=== PATIENT | male | born 1955 | race Caucasian/White ===

== ENCOUNTER 2019-06-24 06:43 | Day surgery (SDC) | payer BC ==
[2019-06-24] MEDS ORDERED: Midazolam 1 MG/ML 2 ML SDV IV ONE (06:44)
[2019-06-24] MEDS ORDERED: Propofol 200 MG/20 ML SDV IV ONE (06:44)
[2019-06-24] MEDS ORDERED: Sodium Chloride 0.9% 10 ML Syringe FLUSH PRN (06:45)
[2019-06-24] MEDS ORDERED: Lactated Ringers 1,000 ML IV SCH (06:45)
--- NOTE | 2019-06-24 08:17 | PCM.OPNOTE ---
- General Post-Op/Procedure Note Date of Surgery/Procedure: 06/24/19 Operative Procedure(s): c scope with bx cold loop and cold forceps Findings: transverse, sigmoid, rectal x2 polyps Pre Op Diagnosis: personal hx of colon polyps Post-Op Diagnosis: stalin Anesthesia Technique: MAC Primary Surgeon: Jose Mabry Anesthesia Provider: Geovanna Vigil Pathology: colon polyps Complications: None Condition: Good Free Text/Narrative:: see dictation
--- NOTE | 2019-06-29 15:15 | OR ---
DATE OF OPERATION: 06/24/2019 SURGEON: Jose Mabry MD PROCEDURE PERFORMED: Colonoscopy with cold loop and cold forceps biopsy. PREOPERATIVE DIAGNOSIS: Personal history of colon polyps. POSTOPERATIVE DIAGNOSIS: Personal history of colon polyps. DESCRIPTION OF OPERATION: After an excellent IV sedation was administered, digital rectal exam was performed. No marked abnormality was noted. The flexible colonoscope was inserted and advanced to the cecum. Prep was excellent. The following findings were noted. Ascending colon was unremarkable. Transverse colon, small polyp encountered, biopsied with cold loop snare and submitted for permanent. Descending colon, unremarkable. Sigmoid, small polyp, biopsied with cold biopsy forceps. Rectum, 2 polyps, biopsied with combination of cold forceps and cold loop. The patient tolerated the procedure well and was taken to recovery room in good condition. /[id number] /MODL
== END 2019-06-24 09:25 | disposition home or self-care (01) ==
LOC: FB.SDS 06:43
PROVIDERS: ATTEND Surgery
DX: Z12.11 Encounter for screening for malignant neoplasm of colon (principal); D12.3 Benign neoplasm of transverse colon; K63.5 Polyp of colon; K62.1 Rectal polyp; I10 Essential (primary) hypertension; E78.2 Mixed hyperlipidemia; Z86.010 Personal history of colon polyps; Z79.899 Other long term (current) drug therapy
CPT/HCPCS: 45380; 45385; 88305; J2250; J2704; J7120

== ENCOUNTER 2024-09-03 07:42 | Day surgery (SDC) | payer MEDICARE, OTHER ==
[2024-09-03] MEDS ORDERED: Lidocaine 1% PF 2 ML SDV IV ONE (07:43)
[2024-09-03] MEDS ORDERED: Propofol 200 MG/20 ML SDV IV ONE (07:43)
[2024-09-03] MEDS ORDERED: Sodium Chloride 0.9% 10 ML Syringe FLUSH PRN (07:45)
[2024-09-03] MEDS: Lactated Ringers 1,000 ML IV SCH (08:16)
[2024-09-03] MEDS: Simethicone Drops 40 MG/0.6 ML 30 ML Bottle ONE (10:13)
== END 2024-09-03 11:45 | disposition home or self-care (01) ==
LOC: FB.SDS 07:42
PROVIDERS: ATTEND Surgery
DX: Z12.11 Encounter for screening for malignant neoplasm of colon (principal); K63.5 Polyp of colon; K57.30 Diverticulosis of large intestine without perforation or abscess without bleeding; K40.20 Bilateral inguinal hernia, without obstruction or gangrene, not specified as recurrent; Z86.0101 Personal history of adenomatous and serrated colon polyps; Z80.0 Family history of malignant neoplasm of digestive organs; I10 Essential (primary) hypertension; Z87.891 Personal history of nicotine dependence; Z79.899 Other long term (current) drug therapy
CPT/HCPCS: 00811; 45384; 88305; A9270; J2003; J2704; J7120